=== PATIENT | male | born 1950 | race Caucasian/White ===

== ENCOUNTER 2019-02-21 10:49 | Emergency (ER) | payer BC ==
[2019-02-21 11:53] VITALS: BP 180/89
--- NOTE | 2019-02-21 12:01 | UC ---
Hand/Wrist HPI - HPI Summary HPI Summary: 68 yo male presents with right thumb injury. He tells me that last night he was playing baseball and tripped over the base and landed with his hands out stretched. His right thumb bent sideways and backwards. He continued playing. Today has increased pain and swelling. He is right handed. Decreased ROM to right thumb. Denies numbness. - History Of Current Complaint Chief Complaint: UCUpperExtremity Stated Complaint: R THUMB INJURY Time Seen by Provider: 02/21/19 12:01 Hx Obtained From: Patient Onset/Duration: Sudden Onset Severity Initially: Moderate Severity Currently: Severe Pain Intensity: 9 Pain Scale Used: 0-10 Numeric - Allergies/Home Medications Allergies/Adverse Reactions: Allergies Allergy/AdvReac Type Severity Reaction Status Date / Time propafenone [From Rythmol] Allergy Intermediate Palpitation Verified 02/21/19 11 :54 s PMH/Surg Hx/FS Hx/Imm Hx Cardiovascular History: Hypertension, Atrial Fibrillation GI/ History: Gastroesophageal Reflux Psychological History: Anxiety, Depression Other History Of: Anticoagulant Therapy Negative For: HIV, Hepatitis B, Hepatitis C - Surgical History Surgical History: Yes Surgery Procedure, Year, and Place: CARDIAC ABLASION 2012, wrist, 1992. hernia 1954 - Family History Known Family History: Positive: Hypertension - Social History Occupation: Employed Full-time Lives: With Family Alcohol Use: Daily Alcohol Amount: 1-2 DRINKS EVERY OTHER NIGHT. Substance Use Type: None Smoking Status (MU): Never Smoked Tobacco - Immunization History Most Recent Influenza Vaccination: none Most Recent Tetanus Shot: "within last few years" Most Recent Pneumonia Vaccination: none Review of Systems All Other Systems Reviewed And Are Negative: Yes Constitutional: Positive: Negative Skin: Positive: Negative Respiratory: Positive: Negative Cardiovascular: Positive: Negative Neurovascular: Positive: Negative Musculoskeletal: Positive: Other: - Right thumb pain Neurological: Positive: Negative Psychological: Positive: Negative Physical Exam - Summary Physical Exam Summary: GENERAL: NAD. WDWN. No pain distress. SKIN: No rashes, sores, lesions, or open wounds. CHEST: No accessory muscle use. Breathing comfortably and in no distress. CV: Pulses intact radial and ulnar. Cap refill <2seconds MSK: RIGHT THUMB: Moderate edema and ecchymosis at base of right thumb. Unable to oppose due to pain and edema. Mild TTP at base of right thumb. Unable to flex at MCP due to pain and edema. NEURO: Alert. Sensations intact hand and all fingers. PSYCH: Age appropriate behavior. Triage Information Reviewed: Yes Vital Signs: Initial Vital Signs Temp 97.7 F 02/21/19 11:47 Pulse 93 02/21/19 11:47 Resp 18 02/21/19 11:47 BP 180/89 02/21/19 11:47 Pulse Ox 96 02/21/19 11:47 Vital Signs Reviewed: Yes Hand/Wrist Course/Dx - Course Course Of Treatment: XR: IMPRESSION: DISPLACED AVULSION FRACTURE FRAGMENT ARISING FROM THE MEDIAL BASE OF THE PROXIMAL PHALANX. Due to degree of edema, a thumb spica splint was too tight - therefore an orthoglass thumb splint was fitted. Advised to rest and ice the area and f/u with Ortho this week. Pt has a long standing rx for norco through his PCP, but says he is about to run out and is requesting more - will give him a 3 day supply. iSTOP Reference #: [id number] - Differential Dx/Diagnosis Provider Diagnosis: Thumb fracture Discharge - Sign-Out/Discharge Documenting (check all that apply): Patient Departure All imaging exams completed and their final reports reviewed: Yes - Discharge Plan Condition: Stable Disposition: HOME Prescriptions: HYDROcodone/ACETAMIN 5-325 MG* [[place] 5-325 TAB*] 1 tab PO Q8H PRN #9 tab MDD 3 PRN Reason: Pain Patient Education Materials: Thumb Fracture (ED) Referrals: Ashok Bernstein MD [Primary Care Provider] - Ambreen Feliciano MD [Medical Doctor] - As Soon As Possible Additional Instructions: If you develop a fever, shortness of breath, chest pain, new or worsening symptoms - please call your PCP or go to the ED immediately. Your blood pressure was high at todays visit. Please see your primary provider within 4 weeks for recheck and re-evaluation. 1) Use the thumb splint as much as possible until you are able to see Orthopedics this week 2) Rest, Ice, and elevate your hand as much as possible to reduce pain and swelling - Billing Disposition and Condition Condition: STABLE Disposition: Home
== END 2019-02-21 13:07 | disposition home or self-care (01) ==
LOC: UCEAST 10:49
DX: S62.511A Displaced fracture of proximal phalanx of right thumb, initial encounter for closed fracture (principal); W01.0XXA Fall on same level from slipping, tripping and stumbling without subsequent striking against object, initial encounter; Y93.64 Activity, baseball; Y92.320 Baseball field as the place of occurrence of the external cause; I10 Essential (primary) hypertension; I48.91 Unspecified atrial fibrillation; Z79.01 Long term (current) use of anticoagulants; K21.9 Gastro-esophageal reflux disease without esophagitis; F41.9 Anxiety disorder, unspecified; F32.9 Major depressive disorder, single episode, unspecified; Z88.8 Allergy status to other drugs, medicaments and biological substances
CPT/HCPCS: 99212; G0463

== ENCOUNTER 2019-03-07 11:24 | Day surgery (SDC) | payer BC ==
--- NOTE | 2019-02-23 14:01 | HP ---
Amended report to enter cosigning physician. HISTORY AND PHYSICAL: DATE OF SURGERY: 03/07/19 DATE OF OFFICE VISIT: 02/22/19 ATTENDING PHYSICIAN: Dr. Feliciano* (dictated by EUGENIO Damian). SURGEON: Dr. Feliciano. PROCEDURE: Right thumb MP joint ulnar collateral ligament repair. CHIEF COMPLAINT: Right thumb pain. HISTORY OF PRESENT ILLNESS: Kaleb is a right-hand dominant 68-year-old male presenting today with right thumb pain after injuring it on 02/20/19. The patient was playing softball and went to run over the base and it slid out from underneath him and he fell bracing himself with his right hand. He continued to play, but when it was swollen and painful the next day he went to [facility]. There he had x-rays that showed a fracture of the proximal phalanx consistent with ulnar collateral ligament tear. He was splinted and is now here for followup. He rates his pain as a 9/10. He denies numbness and tingling. He is taking hydrocodone for pain control that seems to be working pretty well. He has several medical issues including atrial fibrillation which he sees a bean sorter for regularly and is on Xarelto. 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 PAST MEDICAL HISTORY: Atrial fibrillation, stroke, and obstructive sleep apnea , allergies, prostate cancer, hypertension; hypercholesterolemia, and anxiety. PAST SURGICAL HISTORY: Prostatectomy in 2014, wrist fracture in 1992, hernia repair in 1955. MEDICATIONS: 1. Tramadol HCl 50 mg 1 tablet every 6 hours as needed. 2. Xarelto 20 mg 1 tablet by mouth every day. 3. Toprol XL 25 mg half a tablet by mouth twice daily. 4. Omeprazole 40 mg 1 p.o. daily. 5. Ambien 10 mg 1 p.o. at bedtime p.r.n. for insomnia. 6. Wendy 180 mg 1 tablet p.o. daily. 7. Levocetirizine dihydrochloride 5 mg 1 tablet p.o. daily. 8. Hydrocodone/acetaminophen 5/325 mg 1 tablet p.o. q.6 hours as needed for pain. 9. Modafinil 200 mg half a tablet twice daily as needed. 10. Flonase 50 mcg/act 1 spray each nostril twice daily. 11. Ipratropium bromide 0.06% one spray each nostril 3 times a day. 12. Simvastatin 40 mg 1 tablet p.o. daily. 13. Odactra 12 SQ-HDM 1 by mouth daily. 14. Tadalafil 5 mg 1 p.o. p.r.n. 15. Escitalopram oxalate 10 mg 1 p.o. everyday. ALLERGIES: RYTHMOL unknown reaction. FAMILY HISTORY: Positive for diabetes, heart disease, hypertension, stroke, cancer, and arthritis. SOCIAL HISTORY: He is a social welfare clerk, therapist. He lives at home with his . He has about 5 alcoholic drinks a week and denies tobacco or recreational drug use. Denies caffeine use and he exercises daily. REVIEW OF SYSTEMS: Positive for fevers, chills, night sweats, sore throat, runny nose, heart palpitations, shortness of breath, cough, diarrhea, chronic back pain, history of fracture, dizziness, lightheadedness, weakness, weight gain, fatigue, easy bruising, seasonal allergies, hay fever, and anxiety. Otherwise negative for cephalic, cardiovascular, respiratory, gastrointestinal, genitourinary, other musculoskeletal, skin, neurologic, endocrine, and hematologic symptoms. There is no history of anesthesia problems and no history of DVT. PHYSICAL EXAMINATION GENERAL: Well-developed, well-nourished 68-year-old male in no acute distress. VITAL SIGNS: Height 71, weight 216, blood pressure 126/73, respirations 16, temperature 98.8, pain 9, BMI 30.1. HEENT: NCAT. PERRLA. EOMI. NECK: Supple. No palpable lymph nodes. Throat was clear. PULMONARY: Lungs are clear to auscultation bilaterally. No wheezes or rhonchi. CARDIO: Irregularly irregular heart rate. S1 and S2 heard. No murmurs, rubs, or gallops. No edema. ABDOMEN: Positive bowel sounds. Soft and nontender. NEUROLOGIC: A and O x3. Cranial nerves II through XII intact. Sensation is intact to light touch. MUSCULOSKELETAL: Right upper extremity; moderate ecchymosis and edema about the right thumb and hand, likely due to the fact that the patient is on blood thinners for AFib. Exquisitely tender to palpation over the ulnar aspect of the MTP joint of the thumb. He has laxity of the UCL that is seen with valgus stress of the thumb. His thumb and finger range of motion is decreased. Skin is intact and is sensitive to light touch. Neurovascular function is intact. STUDIES: Right thumb radiograph shows evidence of ulnar collateral ligament avulsion fracture with displacement of the proximal phalanx bone fragment. IMPRESSION: Right thumb ulnar collateral ligament avulsion fracture. PLAN/RECOMMENDATIONS: The patient is scheduled to undergo a right thumb MP joint ulnar collateral ligament repair on 02/26/[address] Feliciano. Procedure as well as the risks and benefits were discussed and the patient wished to proceed. He will return to the office 10 days postop for followup and suture removal. A prescription for tramadol was e-scribed to the patient's pharmacy for postoperative pain management. He will be going to the cardiology office for clearance and instruction on stopping Xarelto for the surgery. EUGENIO RICHARDSON [id number]/[facility] #: [id number] [place]
[~2019-03-07 11:24] MED LIST: Buffered Lidocaine 1% SYRIN* 1 ML/SYRINGE INTRADERM ONE; Dexamethasone IV* 4 MG/ML 1 ML (4 MG) IV SLOW PU ONE; Famotidine IV* 10 MG/ML 2 ML (20 mg) IV ONE; Lactated Ringers 1000 ML Bag* 1,000 ML IV SCH
[2019-03-07] MEDS ORDERED: ceFAZolin 2 GM PREMIX in ORs 2 GM/50 ML BAG IVPB ONE (11:34)
[2019-03-07] MEDS ORDERED: Dexamethasone IV* 4 MG/ML 1 ML (4 MG) ONE (11:34)
[2019-03-07] MEDS ORDERED: Famotidine IV* 10 MG/ML 2 ML (20 mg) ONE (11:34)
[2019-03-07] MEDS ORDERED: DiMENhydriNATE IV* 50 MG/ML VIAL IV PUSH PRN (12:14)
[2019-03-07] MEDS ORDERED: Naloxone* 0.4 MG/ML 1 ML VIAL IV PRN (12:14)
[2019-03-07] MEDS ORDERED: HYDROcodone/ACETAMIN 5-325 MG* 1 TAB PO PRN (12:14)
[2019-03-07] MEDS ORDERED: oxyCODONE/Acetamin 5/325 MG* TAB PO PRN (12:14)
[2019-03-07] MEDS ORDERED: fentaNYL* 50 MCG/ML 2 ML VIAL (100 MCG VIAL) IV PRN (12:14)
[2019-03-07] MEDS ORDERED: Bupivacaine 0.5% SDV PF* 30ML VIAL ONE (12:28)
[2019-03-07] MEDS ORDERED: fentaNYL* 50 MCG/ML 2 ML VIAL (100 MCG VIAL) ONE (12:47)
[2019-03-07] MEDS ORDERED: Midazolam* 1 MG/ML 5 ML VIAL (5 MG) ONE (12:47)
[2019-03-07] MEDS ORDERED: Lidocaine 0.5%* 50 ML SDV ONE (12:48)
[2019-03-07] MEDS ORDERED: Propofol* 10 MG/ML 20 ML BTL ONE (13:09)
[2019-03-07] MEDS ORDERED: Metoprolol Tartrate IV* 1 MG/ML 5 ML VIAL ONE (14:03)
[2019-03-07 15:18] VITALS: BP 149/93
--- NOTE | 2019-03-07 18:16 | OP ---
DATE OF OPERATION: 03/07/19 [facility] DATE OF : 52 SURGEON: Ambreen Feliciano MD FUNDER: EUGENIO Luna ANESTHESIA: IV regional. PRE-OP DIAGNOSIS: Right thumb ulnar collateral ligament tear. POST-OP DIAGNOSIS: Right thumb ulnar collateral ligament tear. OPERATIVE PROCEDURE: Ulnar collateral ligament repair of the right thumb. INDICATIONS FOR PROCEDURE: Kaleb is a 68-year-old man who injured his right thumb playing softball. He suffered a fracture at the base of his proximal phalanx, which resulted in ulnar collateral ligament tear. He presents for ulnar collateral ligament repair of the right thumb MP joint. ESTIMATED BLOOD LOSS: Zero. TOURNIQUET TIME: About 35 minutes. DESCRIPTION OF PROCEDURE: The patient was brought to the operating room, was given a sedation anesthetic and an IV regional anesthetic with a tourniquet around his right upper arm. Skin of his right upper extremity was prepped and draped in the usual sterile fashion. A longitudinal incision was made, centered over the ulnar aspect of the MP joint. We dissected through the subcutaneous tissue. Branches of the radial sensory nerve were located and retracted by the medical research assistant, Cristina Ramon. The ulnar collateral ligament and a small piece of bone were superficial to the adductor aponeurosis. The adductor aponeurosis was incised longitudinally and that gave us access to the MP joint. The wound was irrigated. The site of the avulsion fracture was debrided with a curette and rongeur and then a single Mini-Mitek suture anchor was placed after the appropriate hole was drilled. The anchor was then threaded through the bone and ligament and the ligament was tied down, securing the joint, which was very stable. The adductor aponeurosis was then repaired over the ligament with the 2-0 Ethibond suture. Skin edges were reapproximated with 4-0 nylon suture. The wound was dressed with Xeroform, 4x4 , Webril, and a thumb spica splint. The patient tolerated the procedure well and was brought to the recovery room in good condition. [id number]/[facility] #: [id number] MTDD
== END 2019-03-07 15:17 | disposition home or self-care (01) ==
LOC: OREAST 11:24
PROVIDERS: ATTEND Orthopaedic Surgery
DX: S63.641A Sprain of metacarpophalangeal joint of right thumb, initial encounter (principal); W19.XXXA Unspecified fall, initial encounter; Y93.64 Activity, baseball; Y92.320 Baseball field as the place of occurrence of the external cause; I48.91 Unspecified atrial fibrillation; Z79.01 Long term (current) use of anticoagulants; Z86.73 Personal history of transient ischemic attack (TIA), and cerebral infarction without residual deficits; G47.33 Obstructive sleep apnea (adult) (pediatric); Z85.46 Personal history of malignant neoplasm of prostate; I10 Essential (primary) hypertension; E78.00 Pure hypercholesterolemia, unspecified; F41.9 Anxiety disorder, unspecified
CPT/HCPCS: C1713; J0690; J1100; J2250; J2704; J3010; J3490

== ENCOUNTER 2019-04-07 12:32 | Emergency (ER) | payer BC ==
[2019-04-07] MEDS ORDERED: Ondansetron ODT TAB* 4 MG PO ONE (13:55)
--- NOTE | 2019-04-07 14:33 | UC ---
General HPI - HPI Summary HPI Summary: PT presents to with nausea that has progressed since this morning. Pt state he ate chicken wings at 2am. PT went to bed. This morning had a typical breakfast of egg, spinach, turkey white. Pt staes follwong breakfast had an episode of diarrhea - non bloody, non black. pt states went to his dentist for a long awaited appointment. Pt states he felt progressively nauseous - admits was anxious about the appt - Pt's called and he was broughht here. since at was given zofran with improvement of symptoms. Pt took a nap and states feels better since this time. pt denies velazco, vision changes. Pt denies adominal pain, belching. No fever, chills No cp, soba medications reviewed - pt on xarelto - History of Current Complaint Chief Complaint: UCGI Stated Complaint: NAUSEOUS Time Seen by Provider: 04/07/19 14:32 Hx Obtained From: Patient Onset/Duration: Gradual Onset Timing: Constant Onset Severity: Mild Current Severity: None Pain Intensity: 0 Associated Signs & Symptoms: Positive: Anticoagulation Therapy - Allergy/Home Medications Allergies/Adverse Reactions: Allergies Allergy/AdvReac Type Severity Reaction Status Date / Time [place] And Derivatives Allergy Intermediate MOUTH ITCHY Verified 04/07/19 12:51 propafenone [From Rythmol] Allergy Intermediate Palpitation Verified 04/07/19 12 :51 s PMH/Surg Hx/FS Hx/Imm Hx Previously Healthy: Yes Endocrine History: Dyslipidemia Cardiovascular History: Atrial Fibrillation, Other - CVA Psychological History: Anxiety Other History Of: Anticoagulant Therapy Negative For: HIV, Hepatitis B, Hepatitis C - Surgical History Surgical History: Yes Surgery Procedure, Year, and Place: CARDIAC ABLASION 2012, wrist, 1992. hernia 89. prostatectomy 2015 - Family History Known Family History: Positive: Hypertension, Non-Contributory - Social History Occupation: Employed Full-time Lives: With Family Alcohol Use: Weekly Alcohol Amount: 1-2 DRINKS EVERY OTHER NIGHT. Substance Use Type: None Smoking Status (MU): Never Smoked Tobacco - Immunization History Most Recent Influenza Vaccination: none Most Recent Tetanus Shot: "within last few years" Most Recent Pneumonia Vaccination: none Review of Systems All Other Systems Reviewed And Are Negative: Yes Constitutional: Positive: Negative Skin: Positive: Negative ENT: Positive: Negative Respiratory: Positive: Negative Cardiovascular: Positive: Negative Gastrointestinal: Positive: Nausea Is Patient Immunocompromised?: No Physical Exam - Summary Physical Exam Summary: Vital Signs Reviewed: Yes A+Ox3, no distress, no dov Eyes: Conjunctiva Clear, MATTHEW. EOM intact and full ENT: Hearing grossly normal TM x 2 clear, mmoist, uvula midline, no exudate, no erythema Neck: Positive: Supple Respiratory: Positive: No respiratory distress, No accessory muscle use + CTA throughout no w/r Cardiovascular: RRR nl s1, s2 no m/r CBT <2 sec abd soft + BS nt/nd no guarding, no distension Musculoskeletal Exam: HUITRON x 4 without difficulty Strength Intact, ROM Intact Neurological: Positive: Alert, + sensation throughout Psychological: Positive: Normal Response To Family Skin: Positive: no rash, no ecchymosis Triage Information Reviewed: Yes Vital Signs: Initial Vital Signs Temp 97.4 F 04/07/19 12:45 Pulse 80 04/07/19 12:45 Resp 20 04/07/19 12:45 BP 125/70 04/07/19 12:45 Pulse Ox 96 04/07/19 12:45 Re-Evaluation - Re-Evaluation First Eval Comment: pt improved, tolerating juice. will dsicharge. Rx zofran. return precautions Course/Dx - Course Course Of Treatment: Pt presnts to urgent with nausea this morning and 1 episode of diarrhea - no blood no black. Pt states he had a dentist appt this am whicfh he was anxious about (No sedation given) Pt ate chicken wings at 2am and a reasonable breakfast VSS Pt exam normal and non concerning - no abd pain pt rested and states feels better following zofran and nap will recheck vital signs urine If unremarkable will discharge with clears to bland, Rx zofran, rest, strict return precautions pt and spouse comfortable and in agreement wit plan - Diagnoses Provider Diagnosis: Nausea Discharge - Sign-Out/Discharge Documenting (check all that apply): Patient Departure All imaging exams completed and their final reports reviewed: No Studies - Discharge Plan Condition: Stable Disposition: HOME Prescriptions: Ondansetron ODT TAB* [Zofran 4 MG Odt TAB*] 4 mg PO Q6HR #10 tab.odt Patient Education Materials: Acute Nausea and Vomiting (ED) Referrals: Ashok Bernstein MD [Primary Care Provider] - Additional Instructions: - For the first 6 hours, eat and drink clears (water, favio karl, soup broth, jello, popsicles, Gatorade). If you tolerate this okay, add bland foods such as dry toast, scrambled eggs, crackers. Wait until you are feeling better for 24 hours before eating spicy food, acidic food, tomato based food, fried food. - okay to take medication as prescribed for nausea - if you develop fevers, abdominal pain, are unable to stay hydrated, have black or blood in your stool or any other concerns it is recommended you go to the nearest emergency department or contact 911 - Billing Disposition and Condition Condition: STABLE Disposition: Home
[2019-04-07 15:18] VITALS: BP 155/95
== END 2019-04-07 15:37 | disposition home or self-care (01) ==
LOC: UCEAST 12:32
DX: R11.0 Nausea (principal); Z86.73 Personal history of transient ischemic attack (TIA), and cerebral infarction without residual deficits; Z79.01 Long term (current) use of anticoagulants
CPT/HCPCS: 81003; 99212; A9270-GY; G0463

== ENCOUNTER 2019-06-24 10:32 | Emergency (ER) | payer BC ==
--- NOTE | 2019-06-24 10:48 | ED ---
Adult Trauma - HPI Summary HPI Summary: 68 year old M [facility] accompanied by [id number] with a chief complaint of head pain due to hit to the left side of head since today, 06/24/19, at 10:00, per triage. Symptoms aggravated by nothing. Symptoms alleviated by nothing. Patient reports someone hit the ball right at him at the left side of head during softball game. Patient denies LOC. Daughter reports head was bleeding but that it was cleaned. Daughter reports he was wearing glasses that hit his head during accident. Patient does not know of any change of vision but denies neck pain. Patient took 500 mL of Tylenol. Patient reports use of blood thinner, Xarelto, for his afib. Hx prostate cancer (minute), afib, stroke (when started taking xarelto). - History of Current Complaint Chief Complaint: EDHeadInjury Stated Complaint: HEAD INJURY FROM SOFT BALL Time Seen by Provider: 06/24/19 10:38 Hx Obtained From: Patient, Family/Agricultural Produce Packer - [id number] Mechanism of Injury: Blunt Trauma - ball hit to head Loss of Consciousness: no loss of consciousness Onset/Duration: Started Minutes Ago, Still Present Pain Intensity: 6 Pain Scale Used: 0-10 Numeric Location: Head - left side Aggravating Factor(s): Nothing Alleviating Factor(s): Nothing Associated Signs & Symptoms: Positive: Other: - no reporting. Negative: Loss of Consciousness - Additional Pertinent History Primary Care Physician: [id number] - Allergy/Home Medications Allergies/Adverse Reactions: Allergies Allergy/AdvReac Type Severity Reaction Status Date / Time [place] And Derivatives Allergy Intermediate MOUTH ITCHY Verified 04/07/19 12:51 propafenone [From Rythmol] Allergy Intermediate Palpitation Verified 04/07/19 12 :51 s PMH/Surg Hx/FS Hx/Imm Hx Endocrine/Hematology History: Reports: Hx Anticoagulant Therapy Denies: Hx Diabetes, Hx Systemic Lupus Erythematosus, Hx Thyroid Disease Cardiovascular History: Reports: Hx Coronary Artery Disease, Hx Hypercholesterolemia, Hx Hypertension, Other Cardiovascular Problems/Disorders - a-fib Denies: Hx Congestive Heart Failure, Hx Deep Vein Thrombosis, Hx Myocardial Infarction, Hx Pacemaker/ICD Respiratory History: Reports: Hx Seasonal Allergies, Hx Sleep Apnea Denies: Hx Asthma, Hx Chronic Obstructive Pulmonary Disease (COPD), Hx Lung Cancer, Hx Pneumonia, Hx Pulmonary Embolism GI History: Reports: Hx Gastroesophageal Reflux Disease Denies: Hx Gall Bladder Disease, Hx Gastrointestinal Bleed, Hx Ulcer, Hx Urosepsis History: Reports: Other Problems/Disorders - prostate cancer removed 2015 Denies: Hx Dialysis, Hx Kidney Stones, Hx Renal Disease Musculoskeletal History: Reports: Hx Arthritis, Hx Back Problems, Hx Bursitis - right shoulder, Hx Tendonitis - shoulder, Other Musculoskeletal History - chronic pain Denies: Hx Rheumatoid Arthritis Sensory History: Reports: Hx Contacts or Glasses - glasses Denies: Hx Hearing Aid Opthamlomology History: Reports: Hx Contacts or Glasses - glasses Neurological History: Denies: Hx Dementia, Hx Migraine, Hx Seizures, Hx Transient Ischemic Attacks (TIA) Psychiatric History: Reports: Hx Anxiety, Hx Depression, Hx Panic Disorder Denies: Hx Schizophrenia, Hx Bipolar Disorder - Cancer History Cancer Type, Location and Year: Prostate cancer March 2016 Hx Chemotherapy: No Hx Radiation Therapy: No - Surgical History Surgery Procedure, Year, and Place: CARDIAC ABLASION 2012, , 1992. hernia 1954. prostatectomy 2015 Hx Anesthesia Reactions: No Infectious Disease History: No Infectious Disease History: Denies: History Other Infectious Disease, Traveled Outside the [place] in Last 30 Days - Family History Known Family History: Positive: Hypertension, Non-Contributory - Social History Alcohol Use: Weekly Alcohol Amount: 1-2 DRINKS EVERY OTHER NIGHT. Hx Substance Use: No Substance Use Type: Reports: None Hx Tobacco Use: No Smoking Status (MU): Never Smoked Tobacco Review of Systems Musculoskeletal: Other - denies neck pain Neurological: Other - left sided head pain, head bleeding All Other Systems Reviewed And Are Negative: Yes Physical Exam - Summary Physical Exam Summary: Constitutional: Well-developed, Well-nourished, Alert. (-) Distressed Skin: Small puncture wound to left eye brow HENT: Normocephalic; Atraumatic Eyes: Conjunctiva normal, extraocular movements intact Neck: Musculoskeletal ROM normal neck. (-) JVD, (-) Stridor, (-) Tracheal deviation Cardio: Rhythm regular, rate normal, Heart sounds normal; Intact distal pulses; The pedal pulses are 2+ and symmetric. Radial pulses are 2+ and symmetric. (-) Murmur Pulmonary/Chest wall: Effort normal. (-) Respiratory distress, (-) Wheezes, (-) Rales Abd: Soft, (-) tenderness, (-) Distension, (-) Guarding, (-) Rebound Musculoskeletal: (-) Edema, No bony tenderness Lymph: (-) Cervical adenopathy Neuro: Alert, Oriented x3 Psych: Mood and affect Normal NIH: 15 Triage Information Reviewed: Yes Vital Signs On Initial Exam: Initial Vitals Temp Pulse Resp BP Pulse Ox 98.8 F 112 14 160/126 96 06/24/19 10:35 06/24/19 10:35 06/24/19 10:35 06/24/19 10:35 06/24/19 10:35 Vital Signs Reviewed: Yes Diagnostics - Vital Signs Vital Signs Temp Pulse Resp BP Pulse Ox 06/24/19 10:35 98.8 F 112 14 160/126 96 - Laboratory Result Diagrams: 06/24/19 11:01 06/24/19 11:01 Lab Statement: Any lab studies that have been ordered have been reviewed, and results considered in the medical decision making process. - CT Brain CT CT Interpretation Completed By: Radiologist Summary of CT Findings: Per radiologist,. No traumatic injury evident. Negative for intracranial hemorrhage. ED physician has reviewed this imaging report. Re-Evaluation - Re-Evaluation First Eval Re-Evaluation Time: 12:13 Comment: Physician discusses discharge with patient. Adult Trauma Course/Dx - Course Course Of Treatment: Patient is here after being hit in the face with a softball. Patient had a small puncture wound that soft bleeding upon arrival and did not need stitches. Patient had negative CT head for bleeding. Patient did have an increase in his creatinine and he was borderline pancytopenic Penix. Patient was made aware of these results and the question of his primary care doctor follow-up in a week for that. - Diagnoses Provider Diagnoses: Closed head injury, Laceration of eyebrow, left Discharge ED - Sign-Out/Discharge Documenting (check all that apply): Patient Departure - discharge Patient Received Moderate/Deep Sedation with Procedure: No - Discharge Plan Condition: Stable Disposition: HOME Patient Education Materials: Head Injury (ED) Referrals: Ashok Bernstein MD [Primary Care Provider] - As Soon As Possible Additional Instructions: Please get your lab rechecked because your kidney function is slightly elevated and your blood counts are off. Please come back to the ED for any vomiting, slurred speech, or change in vision. - Billing Disposition and Condition Condition: STABLE Disposition: Home - Attestation Statements Document Initiated by Scribe: Yes Documenting Scribe: Akila Alvarez Provider For Whom Kentonibemanuel is Documenting (Include Credential): Dr. Christopher Peck MD Scribe Attestation: I, Akila Alvarez, scribed for Dr. Christopher Peck MD on 06/24/19 at 2030. Scribe Documentation Reviewed: Yes Provider Attestation: The documentation as recorded by the Akila grider accurately reflects the service I personally performed and the decisions made by me, Dr. Christopher Peck MD Status of Scribe Document: Viewed
[2019-06-24 11:12] LABS: ABS Eosinophils 0.1 10^3/ul (0-0.6); ABS Lymphocytes 0.7 10^3/ul (1.0-4.8); ABS Monocytes 0.3 10^3/ul (0-0.8); ABS Neutrophils 2.1 10^3/ul (1.5-7.7); Eosinophil % 3.6 %; Hematocrit 37 % (42-52); Hemoglobin 13.2 g/dL (14.0-18.0); Lymphocyte % 21.2 %; Mean Corpuscular HGB Conc 36 g/dL (31-36); Mean Corpuscular Hemoglobin 33 pg (27-31); Mean Corpuscular Volume 92 fL (80-94); Mean Platelet Volume 9.2 fL (7.4-10.4); Platelet Count 158 10^3/uL (150-450); Red Blood Count 3.98 10^6 /uL (4.18-5.48); Red Cell Distribution Width 13 % (10-15); White Blood Count 3.3 10^3/uL (3.5-10.8)
[2019-06-24 11:16] LABS: INR 1.25 (0.82-1.09)
[2019-06-24 11:27] LABS: Albumin 4.2 g/dL (3.2-5.2); Albumin/Globulin Ratio 2.2 (1-3); BUN/Creatinine Ratio 12.7 (8-20); Calcium 9.2 mg/dL (8.6-10.3); EGFR African American 56.5 (>60); EGFR Non-African American 46.7 (>60); Globulin 1.9 g/dL (2-4); Potassium 3.6 mmol/L (3.5-5.0); Total Bilirubin 0.3 mg/dL (0.2-1.0); Total Protein 6.1 g/dL (6.4-8.9)
[2019-06-24] MEDS ORDERED: Tetan/Diph/Pertus SYR(Tdap)* 0.5 ML SYR(BOOSTRIX) use SYR IM ONE (12:09)
[2019-06-24 12:50] VITALS: BP 159/109
== END 2019-06-24 12:30 | disposition home or self-care (01) ==
LOC: ED 10:32
DX: S01.112A Laceration without foreign body of left eyelid and periocular area, initial encounter (principal); S09.90XA Unspecified injury of head, initial encounter; R51 Headache; Z79.01 Long term (current) use of anticoagulants; I25.10 Atherosclerotic heart disease of native coronary artery without angina pectoris; I10 Essential (primary) hypertension; E78.00 Pure hypercholesterolemia, unspecified; K21.9 Gastro-esophageal reflux disease without esophagitis; Z85.46 Personal history of malignant neoplasm of prostate; W22.8XXA Striking against or struck by other objects, initial encounter; Y93.64 Activity, baseball; Y92.9 Unspecified place or not applicable
CPT/HCPCS: 36415; 70450; 80053; 85025; 85610; 90471; 99282

== ENCOUNTER 2019-10-09 05:30 | Day surgery (SDC) | payer BC ==
[~2019-10-09 05:30] MED LIST changes: -Dexamethasone IV* 4 MG/ML 1 ML (4 MG) IV SLOW PU ONE; -Famotidine IV* 10 MG/ML 2 ML (20 mg) IV ONE; -Lactated Ringers 1000 ML Bag* 1,000 ML IV SCH
[2019-10-09] MEDS ORDERED: Lactated Ringers 1000 ML Bag* 1,000 ML IV SCH (06:00)
[2019-10-09] MEDS ORDERED: Famotidine IV* 10 MG/ML 2 ML (20 mg) IV ONE (06:00)
[2019-10-09] MEDS ORDERED: ceFAZolin 2 GM in NS PREMIX(*) 2 GM/100 ML BAG IVPB ONE (06:11)
[2019-10-09] MEDS ORDERED: Buffered Lidocaine 1% SYRIN* 1 ML/SYRINGE INTRADERM ONE (06:11)
[2019-10-09] MEDS ORDERED: Famotidine IV* 10 MG/ML 2 ML (20 mg) ONE (06:11)
[2019-10-09] MEDS ORDERED: Midazolam* 1 MG/ML 5 ML VIAL (5 MG) ONE (07:29)
[2019-10-09] MEDS ORDERED: Ropivacaine 0.2% * 2 MG/ML VIAL ONE (07:33)
[2019-10-09] MEDS ORDERED: fentaNYL* 50 MCG/ML 2 ML VIAL (100 MCG VIAL) ONE (08:02)
[2019-10-09] MEDS ORDERED: HYDROcodone/ACETAMIN 5-325 MG* 1 TAB PO PRN (08:24)
[2019-10-09] MEDS ORDERED: DiMENhydriNATE IV* 50 MG/ML VIAL IV PUSH PRN (08:24)
[2019-10-09] MEDS ORDERED: Naloxone* 0.4 MG/ML 1 ML VIAL IV PRN (08:24)
[2019-10-09] MEDS ORDERED: Dexamethasone IV* 4 MG/ML 1 ML (4 MG) ONE (08:49)
[2019-10-09] MEDS ORDERED: DiMENhydriNATE IV* 50 MG/ML VIAL ONE (08:49)
[2019-10-09] MEDS ORDERED: Propofol* 10 MG/ML 20 ML BTL ONE ×2 (08:49→09:40)
[2019-10-09] MEDS ORDERED: Lidocaine 2% PF * 5 ML VIAL ONE (08:49)
[2019-10-09] MEDS ORDERED: Succinylcholine* 20 MG/ML 10 ML VIAL ONE (08:49)
[2019-10-09] MEDS ORDERED: Ondansetron INJ* 2 MG/ML VIAL ONE (08:49)
[2019-10-09] MEDS ORDERED: Phenylephrine 40 MCG/ML SYRINGE ONE (09:04)
[2019-10-09 12:34] VITALS: BP 156/89
--- NOTE | 2019-10-10 01:55 | OP ---
CC: Dr. Ashok Bernstein* OPERATIVE REPORT: DATE OF OPERATION: 10/09/19 - [facility] DATE OF : 52 SURGEON: Azael Bejarano MD SECURITIES VAULT SUPERVISOR: EUGENIO Dueñas An or assistant was needed for the entirety of the case to help with positioning, retraction, and utilized throughout all portions of the case. ANESTHESIOLOGIST: Dr. Saunders. ANESTHESIA: General, interscalene block. PRE-OP DIAGNOSES: 1. Right shoulder acromioclavicular joint arthritis. 2. Rotator cuff tear. POST-OP DIAGNOSIS: 1. Right shoulder acromioclavicular joint arthritis. 2. Rotator cuff tear. 3. Type 2 SLAP tear. 4. Bicipital tendinosis and tendinopathy. OPERATIVE PROCEDURE: Right shoulder arthroscopy with: 1. Extensive glenohumeral debridement. 2. Subacromial decompression acromioplasty. 3. Distal clavicle excision. 4. Rotator cuff repair, double row fashion, augmented with Regeneten patch. 5. Open biceps tenodesis. INDICATIONS: Kaleb Hill is a 68-year-old male with persistent shoulder pain refractory to conservative management. He has had significant amounts of pain. He was diagnosed with rotator cuff tear years ago. He had an MRI that demonstrated AC joint arthritis with full-thickness tear in the supraspinatus tendon. After extensive discussion of risks, benefits, operative versus nonoperative treatment, he elected to proceed with surgical treatment. The risks included, but were not limited to, bleeding; infection; damage to nerves, vessels, surrounding structures; wound nonhealing; persistent pain; need for further surgery; scarring; stiffness; incomplete relief of symptoms; risk of anesthesia. COMPLICATIONS: None. ESTIMATED BLOOD LOSS: Minimal. IMPLANTS USED: Two [employer] Healicoil, two MultiFIX, one Q-Fix, and also one size medium Regeneten patch for augmentation. DESCRIPTION OF PROCEDURE: The patient was greeted in the preoperative area by the attending surgeon. Correct extremity was marked and consent was confirmed. The patient underwent interscalene nerve block by the anesthesiologist, after which he was brought back to the operating suite, placed in the supine position on the operating table, and then underwent general anesthesia with endotracheal intubation, after which he was properly positioned in the left lateral decubitus position. All bony prominences were padded. The right arm was draped unsterile with 10 pounds of traction. The right shoulder was prepped and draped in the usual sterile fashion beginning with chlorhexidine soap, scrub , alcohol wipe, and a final prep with ChloraPrep. After appropriate surgical pause indicating side, site, procedure, and administration of antibiotics, a standard posterolateral portal was made sharply with 11-blade. Scope was introduced into the joint. The joint was examined. There was abundant synovitis that was present. The anterior portal was made sharply with 18-gauge needle for localization. A 5-mm cannula was placed. Shaver was used to debride the anterior, posterior, superior labrums. Biceps had crystal tearing along the tendon itself as well as a superior labral tear. There was undersurface full-thickness tearing. The biceps was tenotomized for later tenodesis. The anterior, posterior, and superior labrums were then debrided back. Glenohumeral joint had grade 1 changes. Inferior recess was intact. Subscap was intact. Once the debridement was completed, attention was directed to the subacromial space. The scope was positioned in the subacromial space. The lateral portal was made in an outside-in fashion. The shaver was used to debride back the abundant bursa that was present. The undersurface of the acromion was skeletonized using the electrocautery device, which revealed an irregular anterolateral spur , which was debrided back using a 4.0 oval bur. CA ligament was still back. The acromioplasty was taken all the way to the level of the AC joint, which was then identified and exposed. The bur was brought through the anterior portal and the distal 8 mm of clavicle was then removed. There was abundant stenosis. Removal was confirmed arthroscopically. All fluid and debris were removed and attention was directed to rotator cuff. The cuff had some very thin veil of what looked like some scar tissue that had repaired but it was clear there was a moderate-sized tear, just minimal retraction. The cuff tear was then exposed. The shaver was used to debride back the poor quality cuff tissue to those bony bleeding bed. Electrocautery device was used to skeletonize the greater tuberosity, the 4.0 oval bur and a rasp were then used to gently decorticate to allow for bony bleeding bed. Decision was made to treat this with two Healicoil with taper. Then, placed about the medial aspect of the greater tuberosity, and we placed with excellent purchase. The patient had good quality bone. Sutures were then passed in horizontal mattress configuration to encompass the supraspinatus and some of the infraspinatus. Sutures were then tied down using arthroscopic knot-tying technique. This helped to reapproximate the tendon to the footprint and then 1 cm from each knot was then passed through a MultiFIX anchor for anterior lateral row fixation and posterior row fixation; this allowed to compress the cuff. Images were obtained. The cuff was nicely repaired, but decision was made because of his young age to augment this with Regeneten patch for healing capabilities. A size medium Regeneten patch was brought to the field. It was then secured medially with tendons, stapled laterally with PEEK merline. This was found to be well-seated. The wounds were then copiously irrigated with sterile saline. Attention was directed to the biceps. The bed was airplaned to the right side. The anterior aspect of the shoulder was prepped again using ChloraPrep. A 15-blade was used to make an incision along the biceps tendon. The soft tissue was carefully dissected to expose the pec tendon, remainder of the dissection was done bluntly. Biceps was then brought through the wound and abundant synovitis and tearing were present. The groove was then prepared in the usual fashion using electrocautery device, red ball rasp, and osteotome. The Q-FIX anchor was then deployed with excellent purchase. Sutures were then passed through the tendon in a Ahsan-Lester type configuration, excess stump was excised. The biceps was shuttled back to the wound and secured. The wounds were then copiously irrigated with sterile saline. The anterior wound was closed in layers with 3-0 Monocryl. The portals were closed with 3-0 nylon. Sterile dressings were applied. A Cryo/ Cuff and UltraSling were applied. He was awoken from anesthesia and transferred to the PACU in stable condition. POSTOPERATIVE PLAN: He will be nonweightbearing. He will be in a sling for 6 weeks. Discharged on pain medication and antibiotics. DVT prophylaxis was considered but deferred. The patient is on Xarelto, which he will start again tonight. I will see the patient back in 10 to 14 days. [id number]/[facility] #: [id number] [place]
== END 2019-10-09 12:37 | disposition home or self-care (01) ==
LOC: OR 05:30
PROVIDERS: ATTEND Orthopaedic Surgery
DX: S46.011A Strain of muscle(s) and tendon(s) of the rotator cuff of right shoulder, initial encounter (principal); M19.211 Secondary osteoarthritis, right shoulder; M25.511 Pain in right shoulder; I48.20 Chronic atrial fibrillation, unspecified; Z79.01 Long term (current) use of anticoagulants; G47.33 Obstructive sleep apnea (adult) (pediatric); I25.10 Atherosclerotic heart disease of native coronary artery without angina pectoris; I10 Essential (primary) hypertension; E78.00 Pure hypercholesterolemia, unspecified; J30.2 Other seasonal allergic rhinitis; Z85.46 Personal history of malignant neoplasm of prostate; G89.18 Other acute postprocedural pain; X58.XXXA Exposure to other specified factors, initial encounter; Y92.9 Unspecified place or not applicable
CPT/HCPCS: C1713; C1776; J0330; J0690; J1100; J1240; J2250; J2405; J2704; J2795; J3010